=== PATIENT | male | born 1970 ===

== ENCOUNTER 2023-11-05 10:54 | Inpatient (IN) ==
[2023-11-05] MEDS ORDERED: Al Hydrox/Mg Hydrox/Simet LIQ 30 ML UDC PO PRN (11:29)
[2023-11-06] MEDS: Vitamin THERAPEUTIC TAB PO SCH ×2 (09:17→09:22)
[2023-11-06] MEDS ORDERED: Calcium Carb (TUMS) 500 mg CHEW TAB ONE (16:47)
[2023-11-06] MEDS: Calcium Carb (TUMS) 500 mg CHEW TAB PO SCH ×2 (16:48→21:37)
[2023-11-07] MEDS: Calcium Carb (TUMS) 500 mg CHEW TAB PO SCH ×3 (09:08→20:54)
[2023-11-08] MEDS: Calcium Carb (TUMS) 500 mg CHEW TAB PO SCH ×2 (09:37→14:19)
[2023-11-08] MEDS ORDERED: Calcium Carb (TUMS) 500 mg CHEW TAB PO PRN (18:08)
== END 2023-11-11 14:53 | disposition home or self-care (01) | DRG 861 ==
LOC: BSU 12:15
PROVIDERS: ADMIT Psychiatry & Neurology Psychiatry; ATTEND Psychiatry & Neurology Psychiatry